=== PATIENT | male | born 1960 | race Caucasian/White ===

== ENCOUNTER 2023-09-13 12:26 | Emergency (ER) | payer OTHER ==
[~2023-09-13] VITALS: Ht 182.9 cm; Wt 109.0 kg
[2023-09-13 12:49] VITALS: O2SAT 97
[2023-09-13] MEDS: KETOROLAC 30MG/ML VIAL IM ONE (13:20)
[2023-09-13 13:41] LABS: BASOPHILS % 1.1 % (0.0-2.0); EOSINOPHILS % 5.3 % (0.0-5.0); HEMATOCRIT. 44.6 % (42.0-52.0); HEMOGLOBIN. 15.2 g/dL (14.0-18.0); LYMPHOCYTES % 18.9 % (20.0-50.0); MEAN CORPUSCULAR HEMOGLOBIN 30.8 pg (28.0-32.0); MEAN CORPUSCULAR HGB CONC 34.1 g/dL (31.0-37.0); MEAN CORPUSCULAR VOLUME 90.3 fL (80.0-94.0); MEAN PLATELET VOLUME 9.3 fl (7.4-10.4); MONOCYTES % 8.1 % (2.0-8.0); NEUTROPHILS % 66.6 % (40.0-76.0); PLATELET 208 x1000/uL (130-400); RED BLOOD CELL COUNT 4.94 mill/uL (4.7-6.1); RED CELL DISTRIBUTION WIDTH 14.1 % (11.6-14.6); WHITE BLOOD COUNT 8.7 x1000/uL (4.5-11.0)
[2023-09-13 13:50] LABS: CARBON DIOXIDE 27 mEq/L (21-32); CHLORIDE 106 mEq/L (98-107); SODIUM 140 mEq/L (136-145)
[2023-09-13 13:56] LABS: CREATININE 1.1 mg/dL (0.6-1.3); GLUCOSE 114 mg/dL (70-105); UREA NITROGEN BLOOD 18 mg/dL (9-23)
[2023-09-13 13:57] LABS: ALANINE AMINOTRANSFERASE 107 IU/L (10-49)
[2023-09-13 13:58] LABS: ASPARTATE AMINOTRANSFERASE 46 IU/L (<34); BILIRUBIN DIRECT 0.2 mg/dL (<=3.0); BILIRUBIN TOTAL 0.6 mg/dL (0.1-1.0); PROTEIN TOTAL 6.7 g/dL (6.0-8.3)
[2023-09-13 14:01] LABS: CLARITY URINE CLEAR (CLEAR); COLOR URINE YELLOW (YELLOW); GLUCOSE URINE NEGATIVE (NEGATIVE); KETONES URINE NEGATIVE (NEGATIVE); LEUKOCYTE ESTERASE URINE NEGATIVE (NEGATIVE); NITRITE URINE NEGATIVE (NEGATIVE); OCCULT BLOOD URINE NEGATIVE (NEGATIVE); PH URINE 6.5 (4.5-8.0); PROTEIN URINE NEGATIVE (NEGATIVE); SPECIFIC GRAVITY URINE 1.017 (1.005-1.030); UROBILINOGEN URINE 0.2 E.U./dL (0.2-1.0)
[2023-09-13 15:58] VITALS: BP 134/78; PULSE 75; RESP 18; TEMP 97.9
== END 2023-09-13 15:59 | disposition home or self-care (01) ==
LOC: ER 12:26
DX: R10.9 Unspecified abdominal pain (principal)
CPT/HCPCS: 99285; 74176; 80076; 80048; 81003; 85025; 36415; 93005; 96372; J1885